=== PATIENT | female | born 2000 ===

== ENCOUNTER 2022-05-23 14:23 | Inpatient (IN) | payer SELFPAY ==
[2022-05-23] MEDS ORDERED: LACTATED RINGERS 1,000 ML IV SCH (16:00)
[2022-05-23] MEDS ORDERED: BUTORPHANOL 2 MG/1 ML INJ ONE (17:04)
[2022-05-23] MEDS ORDERED: ACETAMINOPHEN 325 MG TAB PO PRN (17:06)
[2022-05-23] MEDS ORDERED: ePHEDrine SULFATE 50 MG/1 ML INJ IV PRN (17:06)
[2022-05-23] MEDS ORDERED: METHYLERGONOVINE MALEATE 0.2 MG/ML VIAL IM PRN (17:06)
[2022-05-23] MEDS ORDERED: LIDOCAINE (2%) 20 MG/1 ML VIAL 20 ML MDV INFILTRATI ONE (17:06)
[2022-05-23] MEDS ORDERED: TERBUTALINE 1 MG/1 ML INJ SUB-Q PRN (17:06)
[2022-05-23] MEDS ORDERED: OXYTOCIN 10 UNIT/1 ML INJ IM PRN (17:06)
[2022-05-23] MEDS ORDERED: CARBOPROST TROMETHAMINE 250 MCG/1 ML INJ IM PRN (17:06)
[2022-05-23] MEDS ORDERED: miSOPROStol 200 MCG TAB PR PRN (17:06)
[2022-05-23] MEDS ORDERED: LOPERAMIDE 2 MG CAP PO PRN (17:06)
[2022-05-23] MEDS ORDERED: BUTORPHANOL 2 MG/1 ML INJ IV PRN ×2 (17:06)
[2022-05-23] MEDS ORDERED: MINERAL OIL 30 ML ORAL LIQD PO PRN (17:06)
--- NOTE | 2022-05-23 17:50 | History and Physical Report ---
History of Present Illness Date of examination: 05/23/22 Date of admission: 05/23/22 17:07 Chief complaint: I'm in labor History of present illness: 21 y/o in active labor. Had care at [facility]. GBS Negative Past History Past Medical History: no pertinent history Past Surgical History: no surgical history Family/Genetic History: none Social history: no significant social history - Obstetrical History Expected Date of Delivery: 06/06/22 Actual Gestation: 38 Week(s) 0 Day(s) : 1 Number of Living Children: 0 Medications and Allergies Allergies Allergy/AdvReac Type Severity Reaction Status Date / Time No Known Allergies Allergy Verified 05/23/22 16:01 Home Medications Medication Instructions Recorded Confirmed Last Taken Type Ondansetron (Nf) [Zofran TAB] 8 mg PO Q8HR PRN 05/23/22 05/23/22 Unknown History Active Meds: Active Medications Acetaminophen (Acetaminophen 325 Mg Tab) 650 mg PO Q4H PRN PRN Reason: Pain, Mild (1-3) Butorphanol Tartrate (Butorphanol 2 Mg/1 Ml Inj) 1 mg IV Q2H PRN PRN Reason: Pain, Moderate(4-6) LABOR PAIN Butorphanol Tartrate (Butorphanol 2 Mg/1 Ml Inj) 2 mg IV Q2H PRN PRN Reason: Pain , Severe (7-10) Carboprost Tromethamine (Carboprost Tromethamine 250 Mcg/1 Ml Inj) 250 mcg IM ONCE PRN PRN Reason: Uterine Bleeding Ephedrine Sulfate (Ephedrine Sulfate 50 Mg/1 Ml Inj) 10 mg IV Q2M PRN PRN Reason: Hypotension Lactated Ringer's (Lactated Ringers) 1,000 mls @ 125 mls/hr IV DIRECT YSABEL Oxytocin/Sodium Chloride (Pitocin/Ns 30 Unit/500ml) 30 units in 500 mls @ 2 mls/hr IV TITR YSABEL; Protocol Oxytocin/Sodium Chloride (Pitocin/Ns 30 Unit/500ml) 30 units in 500 mls @ 40 mls/hr IV TITR YSABEL; Protocol Loperamide HCl (Loperamide 2 Mg Cap) 2 mg PO ONCE PRN PRN Reason: give with Hemabate Methylergonovine Maleate (Methylergonovine Maleate 0.2 Mg/Ml Vial) 0.2 mg IM ONCE PRN PRN Reason: Uterine Bleeding Mineral Oil (Mineral Oil 30 Ml Oral Liqd) 30 ml PO QHS PRN PRN Reason: Constipation Misoprostol (Misoprostol 200 Mcg Tab) 800 mcg MN ONCE PRN PRN Reason: Uterine Bleeding Oxytocin (Oxytocin 10 Unit/1 Ml Inj) 10 unit IM ONCE PRN PRN Reason: Uterine Bleeding Terbutaline Sulfate (Terbutaline 1 Mg/1 Ml Inj) 0.25 mg SUB-Q ONCE PRN PRN Reason: Hyperstimulation/Hypertonicity Review of Systems All systems: negative - Vital Signs Vital signs: Vital Signs Pulse Pulse Ox 69 97 05/23/22 15:29 05/23/22 15:29 Temp Pulse Resp BP Pulse Ox 70 124/64 94 05/23/22 17:39 05/23/22 17:30 05/23/22 17:39 - Physical Exam Breasts: Positive: deferred Cardiovascular: Regular rate Lungs: Positive: Clear to auscultation Abdomen: Positive: soft Genitourinary (Female): Positive: normal external genitalia Vulva: both: normal Uterus: Positive: enlarged Deep Tendon Reflex Grade: Normal +2 - Obstetrical FHR: category 1 Uterine Contraction Monitor Mode: External Cervical Dilatation: 4 Cervical Effacement Percentage: 100 station: -2 Uterine Contraction Pattern: Regular Uterine Contraction Intensity: Mild Results All other labs normal. Assessment and Plan A: Active labor at 38.1 weeks P: Expect
[2022-05-23] MEDS ORDERED: OXYTOCIN DRIP 30 UNITS/500 ML BAG IV SCH ×2 (18:00)
--- NOTE | 2022-05-23 20:50 | Event Note ---
Date: 05/23/22 S: Feeling ok O: VE /-1, arom clear fluid, CAT I tracing A: Active labor at 38 weeks P: Expect
[2022-05-23] MEDS ORDERED: fentaNYL 100 MCG/2 ML INJ ONE (21:22)
[2022-05-23] MEDS ORDERED: fentaNYL 100 MCG/2 ML INJ IV ONE (22:30)
[2022-05-24] MEDS ORDERED: ACETAMINOPHEN 325 MG TAB PO PRN (00:09)
[2022-05-24] MEDS ORDERED: LANOLIN/ZINC/DIMETHICONE (LANSINOH) 7 GM TP PRN (00:09)
[2022-05-24] MEDS ORDERED: oxyCODONE /ACETAMINOPHEN 5-325MG TAB PO PRN (00:09)
[2022-05-24] MEDS ORDERED: PROMETHAZINE 25 MG TAB PO PRN (00:09)
[2022-05-24] MEDS ORDERED: WITCH HAZEL/ GLYCERIN PAD TP PRN (00:09)
--- NOTE | 2022-05-24 00:09 | Procedure Note ---
OB Delivery Note - Delivery Date of Delivery: 05/23/22 Surgeon: NEW DEL CID Estimated blood loss: 200cc - Vaginal Delivery presentation: vertex Delivery position: OA Intrapartum events: none Delivery augmentation: rupture of membranes, pitocin Delivery monitor: external FHT, external uterine Route of delivery: Delivery placenta: spontaneous Delivery cord: 3 umbilical vessels Delivery laceration: 1st degree (vaginal sulcus) Delivery repair: vicryl Anesthesia: local Delivery comments: of a viable female 7# 5oz on May 23 at 2340 over intact perineum. Vag sulcus laceration repaired with 3-0 vicryl under local anesthesia. QBL 200cc. Mother and baby doing well. - Infant A at 1 minute: 8 at 5 minutes: 9 Infant Gender: Female (7# 3oz)
[2022-05-24 04:39] LABS: Hematocrit 35.5 % (30.3-42.9); Hemoglobin 11.1 gm/dl (10.1-14.3); Mean Corpuscular HGB Conc 31 % (30-34); Mean Corpuscular Volume 84 fl (79-97); Platelet Count 384 K/mm3 (140-440); Red Blood Count 4.25 M/mm3 (3.65-5.03); Red Cell Distribution Width 15.6 % (13.2-15.2)
[2022-05-24] MEDS ORDERED: fentaNYL 100 MCG/2 ML INJ IV ONE (04:50)
[2022-05-24] MEDS: IBUPROFEN 800 MG TAB PO SCH ×3 (05:39→23:21)
--- NOTE | 2022-05-24 14:35 | Progress Note ---
Assessment and Plan A: PP Day #1 Stable P: Follow Routine Orders d/C home in the AM RTO in 6 Weeks Subjective - Subjective Date of service: 05/24/22 Patient reports: appetite normal, voiding normally, pain well controlled, flatus, ambulating normally : doing well, bottle feeding Objective - Vital Signs Latest vital signs: Vital Signs Temp Pulse Resp BP BP Pulse Ox Pulse Ox 05/24/22 07:42 97.9 F 71 20 107/44 97 05/24/22 07:32 98 05/24/22 05:37 98 05/24/22 03:05 99.0 F 60 18 123/58 97 98 05/24/22 02:34 56 L 130/63 05/24/22 02:19 55 L 128/60 05/24/22 02:04 67 124/60 05/24/22 01:49 63 131/59 05/24/22 01:34 62 123/65 05/24/22 01:18 68 119/61 05/24/22 01:04 81 117/59 05/24/22 00:49 66 144/67 05/24/22 00:33 67 128/68 05/24/22 00:18 67 131/71 05/24/22 00:04 90 134/75 05/23/22 23:07 82 98 05/23/22 23:02 93 H 98 05/23/22 22:57 84 97 05/23/22 22:52 84 96 05/23/22 22:47 92 H 98 05/23/22 22:45 111 H 93 05/23/22 22:42 92 H 97 05/23/22 22:37 93 H 97 05/23/22 22:32 82 97 05/23/22 22:27 79 97 05/23/22 22:25 122 H 18 94 05/23/22 22:22 68 97 05/23/22 22:17 88 97 05/23/22 22:13 124 H 91 05/23/22 22:12 74 97 05/23/22 22:07 100 H 96 05/23/22 22:02 66 98 05/23/22 21:57 84 98 05/23/22 21:52 94 H 99 05/23/22 21:47 83 100 05/23/22 21:42 75 96 05/23/22 21:38 69 91 05/23/22 21:37 84 99 05/23/22 21:32 73 94 05/23/22 21:27 73 96 05/23/22 21:26 78 93 05/23/22 21:25 18 05/23/22 21:22 82 97 05/23/22 21:16 77 98 05/23/22 21:11 85 97 05/23/22 21:06 81 98 05/23/22 21:01 113 H 99 05/23/22 20:59 74 87 05/23/22 20:56 115 H 96 05/23/22 20:51 100 H 97 05/23/22 20:46 81 98 05/23/22 20:41 73 97 05/23/22 20:36 73 97 05/23/22 20:31 85 97 05/23/22 20:26 83 97 05/23/22 20:21 83 97 05/23/22 20:16 85 97 05/23/22 20:11 97 H 98 05/23/22 20:06 71 97 05/23/22 20:01 95 H 97 05/23/22 19:56 76 97 05/23/22 19:51 76 97 05/23/22 19:46 77 97 05/23/22 19:41 94 H 97 05/23/22 19:40 73 123/63 05/23/22 19:38 98.1 F 76 18 123/63 97 05/23/22 19:36 78 98 05/23/22 19:31 88 97 05/23/22 19:26 76 96 05/23/22 19:21 73 98 05/23/22 19:16 75 96 05/23/22 19:11 76 98 05/23/22 19:06 74 98 05/23/22 19:01 71 98 05/23/22 19:00 98 05/23/22 18:56 71 97 05/23/22 18:54 68 92 05/23/22 18:51 70 97 05/23/22 18:46 77 97 05/23/22 18:41 71 97 05/23/22 18:36 73 97 05/23/22 18:31 73 96 05/23/22 18:26 78 96 05/23/22 18:21 79 97 05/23/22 18:16 79 97 05/23/22 18:11 74 97 07/08/22 18:06 73 97 05/23/22 18:01 71 97 05/23/22 18:00 16 97 05/23/22 17:56 81 96 05/23/22 17:51 79 96 96 05/23/22 17:39 70 94 05/23/22 17:34 75 94 05/23/22 17:30 75 124/64 92 05/23/22 17:29 79 95 05/23/22 17:24 81 96 05/23/22 17:19 79 96 05/23/22 17:18 70 94 05/23/22 17:14 81 94 05/23/22 17:12 82 92 05/23/22 17:09 78 97 05/23/22 17:04 85 96 05/23/22 17:00 77 120/67 05/23/22 16:59 85 97 05/23/22 16:54 74 97 05/23/22 16:49 109 H 97 05/23/22 16:44 83 97 05/23/22 16:39 85 97 05/23/22 16:34 78 96 05/23/22 16:30 72 123/67 05/23/22 16:29 73 96 05/23/22 16:24 79 96 05/23/22 16:19 81 97 05/23/22 16:14 88 97 05/23/22 16:09 65 97 05/23/22 16:04 82 98 05/23/22 16:00 76 124/66 05/23/22 15:59 71 96 05/23/22 15:54 73 97 05/23/22 15:49 82 96 05/23/22 15:44 76 96 05/23/22 15:39 81 96 05/23/22 15:34 83 96 05/23/22 15:30 66 123/70 05/23/22 15:29 69 97 Intake and Output 05/23/22 05/24/22 05/24/22 22:59 06:59 14:59 Intake Total 360 Output Total 700 Balance -700 360 Intake: Oral 360 Output: Urine 700 Void 700 Other: Total, Intake Amount 360 Total, Output Amount 600 # Voids Void 1 1 Weight 74.843 kg Estimated Blood Loss 200 - Exam Breasts: Present: normal Cardiovascular: Present: Regular rate Lungs: Present: Clear to auscultation, Normal air movement Abdomen: Present: normal appearance, soft, normal bowel sounds Uterus: Present: normal, firm, fundal height below umbilicus Extremities: Present: edema (+1 bilateral pedal edema) - Labs Labs: Abnormal lab results 05/23/22 Range/Units 19:53 WBC 20.6 H (4.5-11.0) K/mm3 MCH 26 L (28-32) pg RDW 15.6 H (13.2-15.2) %
--- NOTE | 2022-05-24 14:38 | Discharge Summary ---
Providers - Providers Date of Admission: 05/23/22 17:07 Date of discharge: 05/25/22 Attending physician: SHANE JARA Primary care physician: SHANE JARA Hospitalization Reason for admission: active labor Delivery: Episiotomy: none Laceration: 1st degree Other procedures: none complications: none Discharge diagnosis: IUP at term delivered baby: female Condition at discharge: Good Disposition: 01 HOME / SELF CARE / HOMELESS Plan - Provider Discharge Summary Activity: routine, no sex for 6 weeks, no heavy lifting 4 weeks, no strenuous exercise Diet: routine Instructions: routine Additional instructions: [] Smoking cessation referral if applicable(refer to patient education folder for contact #) [] Refer to [facility]'s [facility] Booklet Call your doctor immediately for: * Fever > 100.5 * Heavy vaginal bleeding ( >1 pad per hour) * Severe persistent headache * Shortness of breath * Reddened, hot, painful area to leg or breast * Drainage or odor from incision. * Keep incision clean and dry at all times and follow doctor's instructions regarding bathing/showering - Follow up plan Follow up: SHANE JARA MD [Primary Care Provider] - 6 Weeks
[2022-05-24 16:16] LABS: Hematocrit 28.9 % (30.3-42.9); Hemoglobin 9.4 gm/dl (10.1-14.3)
[2022-05-24] MEDS ORDERED: FERROUS SULFATE 325 MG TAB PO SCH (22:00)
[2022-05-25] MEDS: IBUPROFEN 800 MG TAB PO SCH (05:25)
[2022-05-25 09:28] VITALS: BP 123/73
== END 2022-05-25 10:00 | disposition home or self-care (01) | DRG 807 ==
LOC: TRG 14:23 → APU 14:42 → TRG 17:13 → LD 17:43 → OB 05-24 03:00
PROVIDERS: ADMIT Obstetrics & Gynecology; ATTEND Obstetrics & Gynecology
PROC: 10E0XZZ Delivery of Products of Conception, External Approach (ICD-10-PCS; principal; 2022-05-23)
PROC: 0HQ9XZZ Repair Perineum Skin, External Approach (ICD-10-PCS; 2022-05-23)
DX: O70.0 First degree perineal laceration during delivery (principal); Z37.0 Single live birth; Z3A.38 38 weeks gestation of pregnancy
CPT/HCPCS: 36415; 85014; 85018; 85027; 86592; 86850; 86900; 86901; G0378; J0595; J2590; J3010; J7120; U0003